=== PATIENT | male | born 1975 | race Caucasian/White ===

== ENCOUNTER 2016-05-04 09:59 | Inpatient (IN) | payer MEDICARE, OTHER ==
[~2016-05-04] VITALS: Ht 177.8 cm; Wt 115.2 kg
--- NOTE | 2016-05-04 10:21 | PD ---
HPI Chief Complaint: Silva act Time Seen by Provider: 10:09 Travel History International Travel<30 days: No Contact w/Intl Traveler<30days: No Traveled to known affect area: No History of Present Illness HPI 40-year-old male was seen at [facility] and Silva acted and sent to ED for medical clearance and psychiatric evaluation. Patient was diagnosed with schizophrenia and delusional. Patient's unable to provide any more information. Patient denies any headache. Patient denies any chest pain or shortness of breath. Patient denies abdominal pain. Patient denies any focal weakness or numbness of extremity. Patient denies any illicit drug abuse or alcohol abuse. PFSH Social History Tobacco Use: No Allergies-Medications (Allergen,Severity, Reaction): Coded Allergies: No Known Allergies (Unverified , 05/04/16) Reported Meds & Prescriptions Reported Meds & Active Scripts Active No Active Prescriptions or Reported Medications Review of Systems General / Constitutional: No: Fever Eyes: No: Visual changes HENT: No: Headaches Cardiovascular: No: Chest Pain or Discomfort Respiratory: No: Shortness of Breath Gastrointestinal: No: Abdominal Pain Genitourinary: No: Dysuria Musculoskeletal: No: Pain Skin: No Rash Neurologic: No: Weakness Psychiatric: No: Depression Endocrine: No: Polydipsia Hematologic/Lymphatic: No: Easy Bruising Physical Exam Narrative GENERAL: Well-nourished, well-developed patient. SKIN: Warm and dry. HEAD: Normocephalic. EYES: No scleral icterus. No injection or drainage. NECK: Supple, trachea midline. No JVD or lymphadenopathy. CARDIOVASCULAR: Regular rate and rhythm without murmurs, gallops, or rubs. RESPIRATORY: Breath sounds equal bilaterally. No accessory muscle use. GASTROINTESTINAL: Abdomen soft, non-tender, nondistended. MUSCULOSKELETAL: No cyanosis, or edema. BACK: Nontender without obvious deformity. No CVA tenderness. Neurologic exam: Patient's awake and alert. Patient moves all extremities well. No obvious focal neurological deficit. Data Data Last Documented VS Vital Signs Date Time Temp Pulse Resp B/P Pulse Ox O2 Delivery O2 Flow Rate FiO2 05/05/16 06:21 68 16 132/68 99 Room Air 05/04/16 14:39 97.8 Orders Complete Blood Count With Diff (05/04/16 10:18) Comprehensive Metabolic Panel (05/04/16 10:18) Psych Screen (05/04/16 10:18) Potassium Chloride (Kcl) (05/04/16 14:00) Diet Regular Basic (05/04/16 Dinner) Diet Regular Basic (05/05/16 Breakfast) Diet Regular Basic (05/05/16 Lunch) Admit Order (Ed Use Only) (05/05/16 09:52) Labs Laboratory Tests Test 05/04/16 10:30 Sodium Level 141 MEQ/L Potassium Level 3.3 MEQ/L Chloride Level 105 MEQ/L Carbon Dioxide Level 26.6 MEQ/L Anion Gap 9 MEQ/L Blood Urea Nitrogen 9 MG/DL Creatinine 0.79 MG/DL Estimat Glomerular Filtration 108 ML/MIN Rate Random Glucose 105 MG/DL Calcium Level 8.6 MG/DL Total Bilirubin 0.6 MG/DL Aspartate Amino Transf 21 U/L (AST/SGOT) Alanine Aminotransferase 34 U/L (ALT/SGPT) Alkaline Phosphatase 69 U/L Total Protein 7.6 GM/DL Albumin 3.8 GM/DL White Blood Count 5.0 TH/MM3 Red Blood Count 5.23 MIL/MM3 Hemoglobin 14.2 GM/DL Hematocrit 43.2 % Mean Corpuscular Volume 82.6 FL Mean Corpuscular Hemoglobin 27.1 PG Mean Corpuscular Hemoglobin 32.8 % Concent Red Cell Distribution Width 14.7 % Platelet Count 280 TH/MM3 Mean Platelet Volume 7.4 FL Neutrophils (%) (Auto) 58.3 % Lymphocytes (%) (Auto) 33.1 % Monocytes (%) (Auto) 6.0 % Eosinophils (%) (Auto) 1.9 % Basophils (%) (Auto) 0.7 % Neutrophils # (Auto) 2.9 TH/MM3 Lymphocytes # (Auto) 1.7 TH/MM3 Monocytes # (Auto) 0.3 TH/MM3 Eosinophils # (Auto) 0.1 TH/MM3 Basophils # (Auto) 0.0 TH/MM3 CBC Comment DIFF FINAL Differential Comment MDM Medical Decision Making Medical Screen Exam Complete: Yes Emergency Medical Condition: Yes Interpretation(s) 1343 PM. CBC within normal limit. CMP within normal limit. Potassium 3.3. Differential Diagnosis Differential diagnosis including schizophrenia, psychosis, psychiatric issues. Narrative Course 40-year-old male was Silva acted by [facility] and sent to ED for evaluation. 1340 3 PM. Patient is medically cleared for psychiatric evaluation and disposition. Scripts No Active Prescriptions or Reported Meds Yong Gallardo MD May 04, 2016 10:21
[2016-05-04 10:51] VITALS: BP 120/77; PULSE 64; RESP 17; TEMP 98.3; O2SAT 97
[2016-05-04 10:57] LABS: AUTOMATED NEUTROPHIL # 2.9 TH/MM3 (1.8-7.7); BASOPHIL % 0.7 % (0.0-2.0); EOSINOPHIL # 0.1 TH/MM3 (0-0.4); EOSINOPHIL % 1.9 % (0.0-4.0); HEMATOCRIT 43.2 % (39.0-51.0); HEMO FLAGS DIFF FINAL; LYMPH % 33.1 % (9.0-44.0); LYMPHOCYTE # 1.7 TH/MM3 (1.0-4.8); MEAN CELL VOLUME 82.6 FL (80.0-100.0); MEAN CORPUSCULAR HEMOGLOBIN 27.1 PG (27.0-34.0); MEAN CORPUSCULAR HGB CONC 32.8 % (32.0-36.0); NEUT % 58.3 % (16.0-70.0); PLATELET COUNT 280 TH/MM3 (150-450); RED BLOOD COUNT 5.23 MIL/MM3 (4.50-5.90); RED CELL DISTRIBUTION WIDTH 14.7 % (11.6-17.2)
[2016-05-04 11:17] LABS: ANION GAP 9 MEQ/L (5-15); AST (GOT) 21 U/L (15-37); BICARBONATE 26.6 MEQ/L (21.0-32.0); BLOOD UREA NITROGEN 9 MG/DL (7-18); CHLORIDE 105 MEQ/L (98-107); GLOMERULAR FILTRATION RATE 108 ML/MIN (>89); POTASSIUM 3.3 MEQ/L (3.5-5.1); SODIUM (NA) 141 MEQ/L (136-145)
[2016-05-04 11:20] LABS: ALKALINE PHOSPHATASE 69 U/L (45-117); ALT (GPT) 34 U/L (12-78); TOTAL BILIRUBIN ADULT 0.6 MG/DL (0.2-1.0)
[2016-05-04] MEDS ORDERED: POTASSIUM CHLORIDE 20 MEQ CONTROLLED RELEASE TAB PO ONE (14:00)
[2016-05-04 14:39] VITALS: BP 154/93; PULSE 75; RESP 17; TEMP 97.8; O2SAT 97
[2016-05-04 22:22] VITALS: BP 135/85; PULSE 70; RESP 18; O2SAT 97
[2016-05-05 02:16] VITALS: BP 127/72; PULSE 58; RESP 18; O2SAT 98
[2016-05-05 06:21] VITALS: BP 132/68; PULSE 68; RESP 16; O2SAT 99
[2016-05-05] MEDS ORDERED: MAGNESIUM HYDROXIDE SUSP 30 ML CUP PO PRN (11:30)
[2016-05-05] MEDS ORDERED: LORazepam 1 MG TAB PO PRN (11:30)
[2016-05-05] MEDS ORDERED: ALUMINUM/MAGNESIUM/SIMETH 30 ML CUP PO PRN (11:30)
[2016-05-05] MEDS ORDERED: LORazepam 2 MG/ML VIAL IM PRN (11:30)
[2016-05-05] MEDS ORDERED: ACETAMINOPHEN 325 MG TAB PO PRN (11:30)
[2016-05-05] MEDS ORDERED: traZODone HCL 50 MG TAB PO PRN (11:30)
[2016-05-05 13:00] VITALS: BP 113/60; PULSE 68; RESP 16; O2SAT 94
[2016-05-05 16:00] VITALS: BP 138/91; PULSE 67; RESP 16; TEMP 98.7; O2SAT 94
[2016-05-05] MEDS: REMOVE OLD NICOTINE PATCH T-DERMAL SCH (21:00)
[2016-05-05] MEDS: OLANZapine 5 MG TAB PO SCH (21:00)
[2016-05-06 06:07] VITALS: BP 125/85; PULSE 59; RESP 18; TEMP 97.8; O2SAT 99
[2016-05-06 08:15] LABS: ANION GAP 6 MEQ/L (5-15); BICARBONATE 28.3 MEQ/L (21.0-32.0); BLOOD UREA NITROGEN 11 MG/DL (7-18); CHLORIDE 107 MEQ/L (98-107); GLOMERULAR FILTRATION RATE 93 ML/MIN (>89); POTASSIUM 4.3 MEQ/L (3.5-5.1); SODIUM (NA) 141 MEQ/L (136-145)
[2016-05-06 08:18] LABS: HDL CHOLESTEROL 57.3 MG/DL (40.0-60.0); LDL CHOLESTEROL 81 MG/DL (0-99)
[2016-05-06] MEDS: OLANZapine 5 MG TAB PO SCH (09:00)
[2016-05-06] MEDS: NICOTINE 21 MG/24 HR PATCH T-DERMAL SCH (09:00)
[2016-05-06 09:25] LABS: HEMOGLOBIN A1b 1.4 %; HEMOGLOBIN Ao 86.3 %; HEMOGLOBIN LA1C 1.9 %; HEMOGLOBIN P3 3.5 %
[2016-05-06] MEDS ORDERED: HALOPERIDOL LACTATE 5 MG/ML AMP ONE (11:06)
[2016-05-06] MEDS ORDERED: diphenhydrAMINE HCL 50 MG/ML VIAL ONE (11:07)
[2016-05-06] MEDS ORDERED: HALOPERIDOL LACTATE 5 MG/ML AMP IM ONE (11:30)
[2016-05-06] MEDS ORDERED: LORazepam 2 MG/ML VIAL IM ONE (11:30)
[2016-05-06] MEDS ORDERED: diphenhydrAMINE HCL 50 MG/ML VIAL IM ONE (11:30)
[2016-05-06 11:45] LABS: AMPHETAMINE, URINE NEG (NEG); BARBITURATES, URINE NEG (NEG); COCAINE, URINE NEG (NEG)
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
[2016-05-06] MEDS ORDERED: BENZTROPINE MESYLATE 2 MG/2 ML VIAL IM PRN (15:30)
[2016-05-06] MEDS ORDERED: BENZTROPINE MESYLATE 1 MG TAB PO PRN (15:30)
[2016-05-06] MEDS ORDERED: HALOPERIDOL 5 MG TAB PO PRN (15:30)
[2016-05-06] MEDS ORDERED: HALOPERIDOL LACTATE 5 MG/ML AMP IM PRN (15:30)
[2016-05-06] MEDS ORDERED: diphenhydrAMINE HCL 50 MG CAP PO PRN (15:30)
[2016-05-06] MEDS ORDERED: LORazepam 2 MG/ML VIAL IM PRN (17:30)
[2016-05-06] MEDS ORDERED: LORazepam 1 MG TAB PO PRN (17:30)
[2016-05-06 18:17] VITALS: BP 116/57; PULSE 109; RESP 16; TEMP 98.1; O2SAT 97
[2016-05-06] MEDS: REMOVE OLD NICOTINE PATCH T-DERMAL SCH (20:46)
[2016-05-07 05:32] VITALS: BP 131/74; PULSE 65; RESP 16; TEMP 97.7; O2SAT 98
[2016-05-07] MEDS: NICOTINE 21 MG/24 HR PATCH T-DERMAL SCH (08:40)
[2016-05-07] MEDS: REMOVE OLD NICOTINE PATCH T-DERMAL SCH (08:40)
--- NOTE | 2016-05-07 11:41 | HHI.PYPN ---
Subjective Remarks Patient seen and examined with counselor. Chart reviewed. Case discussed with nursing staff. We still have no one to provide consent for medications. On my examination today, patient remains extremely psychotic. He is internally preoccupied. When I try to engage him in conversation, he is more or less conversing instead with an unseen interlocutor. When I am able to engage with him directly, his speech is fairly disjointed and nonsensical, saying things like "I can't seem to learn it" and "if you do it, everyone else will do it," but these phrases mean nothing in context. He does mention an uncle named Larry Ventura, but he does not know where he lives of how to contact him. Review of Systems ROS Limitations: Psychotic, Poor Historian Other No physical complaints today. Objective Alert: Yes [place]: Person Mood: Calm Affect: Flat Memory Intact: Comment (difficult to assess; psychosis interferes.) Hallucinations: Auditory (Frankly responding to internal stimuli) Delusions: Yes Delusion Type: Paranoid Suicidal: Ideation (No SI voiced) Homicidal: Ideation (No HI voiced) Insight/Judgement Poor Remarks Thought process quite disorganized. Speech rambling, somewhat pressured. Continues to cock his neck, but this is less prominent today. No other abnormal motor movements noted. Labs Labs reviewed. No new labs. Vitals/IOs Vital Signs Date Time Temp Pulse Resp B/P Pulse Ox O2 Delivery O2 Flow Rate FiO2 05/07/16 05:32 97.7 65 16 131/74 98 05/05/16 13:00 Room Air Assessment & Plan Problem List: (1) Psychosis ICD Code: F29 Assessment & Plan Medications on hold awaiting consent. Patient remains too psychotic to function safely in a lower level of care. We will continue to try to obtain some sort of collateral information regarding this patient's case. Continue to monitor on inpatient unit. Justification for Cont. Inpt. Impairment in self-care, impairment in reality construction, high risk for decompensation in a lower level of care. Discharge Planning Pending psychiatric stabilization. Request HC Surrog/Guard Advoc?: Yes Problem Qualifiers (1) Psychosis: Qualified Code: F28 - Other psychotic disorder not due to substance or known physiological condition Delonte Calhoun MD May 07, 2016 11:41
[2016-05-07 19:26] VITALS: BP 127/65; PULSE 69; RESP 16; TEMP 98
[2016-05-08 05:51] VITALS: BP 122/80; PULSE 78; RESP 18; TEMP 98; O2SAT 92
[2016-05-08] MEDS: NICOTINE 21 MG/24 HR PATCH T-DERMAL SCH (09:00)
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
[2016-05-08] MEDS: REMOVE OLD NICOTINE PATCH T-DERMAL SCH (21:00)
[2016-05-08 22:35] VITALS: BP 135/69; PULSE 69; RESP 16; TEMP 98; O2SAT 97
[2016-05-09 06:10] VITALS: BP 146/73; PULSE 69; RESP 18; TEMP 98.4; O2SAT 95
[2016-05-09] MEDS: NICOTINE 21 MG/24 HR PATCH T-DERMAL SCH (08:35)
--- NOTE | 2016-05-09 15:04 | HHI.PYPN ---
Subjective Remarks Patient was seen and case discussed with nursing. Patient remains elevated and hyperverbal. Flight of ideas. Poor insight into his mental health. He is behaving well on the unit. Denies auditory visual hallucinations. Objective Alert: Yes [place]: Person Mood: Calm Affect: Flat Memory Intact: Comment (remains difficult to assess) Hallucinations: Auditory (remains internally stimulated) Delusions: Yes Delusion Type: Paranoid Suicidal: Ideation (No SI voiced) Homicidal: Ideation (No HI voiced) Insight/Judgement Poor Vitals/IOs Vital Signs Date Time Temp Pulse Resp B/P Pulse Ox O2 Delivery O2 Flow Rate FiO2 05/09/16 06:10 98.4 69 18 146/73 95 05/05/16 13:00 Room Air Assessment & Plan Problem List: (1) Psychosis ICD Code: F29 Assessment & Plan Continue current treatment plan Justification for Cont. Inpt. Patient will decompensate in a less restrictive setting Request HC Surrog/Guard Advoc?: Yes Problem Qualifiers (1) Psychosis: Qualified Code: F28 - Other psychotic disorder not due to substance or known physiological condition Jamaal Gill DO May 09, 2016 15:04
[2016-05-09 19:42] VITALS: BP 106/60; PULSE 67; RESP 18; TEMP 98.2; O2SAT 98
[2016-05-09] MEDS: REMOVE OLD NICOTINE PATCH T-DERMAL SCH (21:00)
[2016-05-10 05:34] VITALS: BP 136/79; PULSE 60; RESP 16; TEMP 97.2; O2SAT 99
[2016-05-10] MEDS: NICOTINE 21 MG/24 HR PATCH T-DERMAL SCH (09:00)
[2016-05-10 16:58] VITALS: BP_SYST 140; BP_SYST 99; BP_DIAS 72; PULSE 77; RESP 18; TEMP 98.1; O2SAT 99
--- NOTE | 2016-05-10 17:12 | HHI.PYPN ---
Subjective Remarks Patient was seen and case discussed with nursing. Patient remains largely nonsensical and disorganized. Perseverative today on finding a job. Mood remains stable. Patient is bright and cheerful. He denies depressed mood. Denies suicidal or homicidal ideation intent or plan. Compliant with medications Objective Alert: Yes [place]: Person Mood: Calm Affect: Flat Memory Intact: Comment (remains difficult to assess) Hallucinations: Auditory (remains internally stimulated) Delusions: Yes Delusion Type: Paranoid Suicidal: Ideation (No SI voiced) Homicidal: Ideation (No HI voiced) Insight/Judgement Poor Vitals/IOs Vital Signs Date Time Temp Pulse Resp B/P Pulse Ox O2 Delivery O2 Flow Rate FiO2 05/10/16 16:58 98.1 77 18 99/ 99 Assessment & Plan Problem List: (1) Psychosis ICD Code: F29 Assessment & Plan Continue current treatment plan Justification for Cont. Inpt. Patient will decompensate in a less restrictive setting Request HC Surrog/Guard Advoc?: Yes Problem Qualifiers (1) Psychosis: Qualified Code: F28 - Other psychotic disorder not due to substance or known physiological condition Jamaal Gill DO May 10, 2016 17:12
[2016-05-10] MEDS: REMOVE OLD NICOTINE PATCH T-DERMAL SCH (20:49)
[2016-05-11 05:52] VITALS: BP 153/71; PULSE 74; RESP 18; TEMP 98.3; O2SAT 97
[2016-05-11] MEDS: NICOTINE 21 MG/24 HR PATCH T-DERMAL SCH (09:00)
--- NOTE | 2016-05-11 09:50 | HHI.PYPN ---
Subjective Remarks Patient seen and examined with nurse. Chart reviewed. Case discussed with nursing staff who reports patient remains disorganized. He apparently at one point told nursing staff that he had been on Zyprexa in the past. On my examination today, the patient remains disorganized. His affect is fairly silly. He is quite malodorous and disheveled. He says, "Crab suck. Went over there lady back down the [address]." Not clear what this means. He remains internally preoccupied and bizarre. He does admit to having been on Zyprexa, "in the past. If they knew all my names." Pacing around the unit, frankly muttering to himself. Review of Systems ROS Limitations: Psychotic, Poor Historian Other No physical complaints today. Objective Alert: Yes [place]: Person Mood: Calm Affect: Other (silly, bizarre) Memory Intact: Comment (Not formally assessed today) Hallucinations: Auditory (remains internally stimulated) Delusions: Yes Delusion Type: Paranoid Suicidal: Ideation (No SI) Homicidal: Ideation (No HI) Insight/Judgement Poor Remarks Thought process disorganized. Speech rambling and difficult to follow at times. No motoric abnormalities noted. Grooming and hygiene are poor and I have encouraged the patient to take a shower. Labs Labs reviewed. Extended tox screen negative. Vitals/IOs Vital Signs Date Time Temp Pulse Resp B/P Pulse Ox O2 Delivery O2 Flow Rate FiO2 05/11/16 05:52 98.3 74 18 153/71 97 Assessment & Plan Problem List: (1) Psychosis ICD Code: F29 Assessment & Plan Awaiting appointment of a guardian advocate for consent for medications. Patient remains extremely psychotic and disorganized. Requires monitoring on the unit for safety. Justification for Cont. Inpt. Impairment in reality construction. Impairment in self-care. Impairment in social function. High risk for decompensation in a less restrictive environment. Discharge Planning Pending psychiatric stabilization. We will likely have to await hopeful appointment of a guardian advocate on to begin medication management for this patient. Request HC Surrog/Guard Advoc?: Yes Problem Qualifiers (1) Psychosis: Qualified Code: F28 - Other psychotic disorder not due to substance or known physiological condition Delonte Calhoun MD May 11, 2016 09:50
[2016-05-11 10:05] LABS: BATH SALTS (MDPV) UR NEG (NEG); ECSTASY (MDMA) UR NEG (NEG); HEROIN (6-ACETYLMORPHINE) UR NEG (NEG); K2 SPICE UR NEG (NEG); OBMETHADONE UR NEG (NEG); OXYCODONE (PERCODAN) NEG (NEG); PHENCYCLIDINE URINE NEG (NEG)
[2016-05-11 15:29] VITALS: BP 129/62; PULSE 82; RESP 18; TEMP 98.3; O2SAT 97
[2016-05-11] MEDS: REMOVE OLD NICOTINE PATCH T-DERMAL SCH (21:00)
[2016-05-12 05:41] VITALS: BP 120/71; PULSE 61; RESP 17; TEMP 98; O2SAT 99
[2016-05-12] MEDS: NICOTINE 21 MG/24 HR PATCH T-DERMAL SCH (08:45)
--- NOTE | 2016-05-12 09:28 | HHI.PYPN ---
Subjective Remarks Patient seen and examined with counselor. Chart reviewed. Case discussed with nursing staff, counselor and recreation therapist in treatment team. Per nursing staff, the patient remains very psychotic. Amongst his ramblings is material regarding the [place] night[place] shooting, I am told. He is reportedly muttering the word "nigg*r" to no one in particular on the unit, per nursing staff. On my examination today, the patient is disheveled and malodorous. He is calm but somewhat discharge focused. His thought process is disorganized and his speech is difficult to follow. He tells us, "that roca-woman comes around the way." Unclear what this means. Remains quite internally stimulated. Still no consents for meds. Review of Systems ROS Limitations: Psychotic, Poor Historian Other No physical complaints today. Objective Alert: Yes [place]: Person Mood: Calm Affect: Other (remains fairly silly and bizarre.) Memory Intact: Comment (Not formally assessed today) Hallucinations: Auditory (Internally stimulated.) Delusions: Yes Delusion Type: Paranoid (bizarre) Suicidal: Ideation (No SI) Homicidal: Ideation (No HI) Insight/Judgement Poor Remarks TP disorganized. Steady gait and station. Labs Labs reviewed. No new labs. Vitals/IOs Vital Signs Date Time Temp Pulse Resp B/P Pulse Ox O2 Delivery O2 Flow Rate FiO2 05/12/16 05:41 98.0 61 17 120/71 99 Assessment & Plan Problem List: (1) Psychosis ICD Code: F29 Assessment & Plan Awaiting appointment of a guardian advocate to begin medication management and the psychotic patient. Continue to monitor on the inpatient psychiatric unit. Justification for Cont. Inpt. Impairment in reality construction. Impairment in self-care. Impairment in social function. High risk for decompensation in a less restrictive environment. Discharge Planning Pending outcome of [address], . Request HC Surrog/Guard Advoc?: Yes Problem Qualifiers (1) Psychosis: Qualified Code: F28 - Other psychotic disorder not due to substance or known physiological condition Delonte Calhoun MD May 12, 2016 09:28
[2016-05-12 18:12] VITALS: BP 136/86; PULSE 71; RESP 18; TEMP 98.1; O2SAT 98
[2016-05-12] MEDS ORDERED: HALOPERIDOL LACTATE 5 MG/ML AMP IM ONE (23:00)
[2016-05-12] MEDS ORDERED: LORazepam 2 MG/ML VIAL IM ONE (23:00)
[2016-05-12] MEDS ORDERED: diphenhydrAMINE HCL 50 MG/ML VIAL IM ONE (23:00)
[2016-05-13 06:40] VITALS: BP 107/57; PULSE 63; RESP 16; TEMP 97.6; O2SAT 98
--- NOTE | 2016-05-13 08:49 | HHI.PYPN ---
Subjective Remarks Patient seen and examined with nurse. Chart reviewed. Case discussed with nursing staff. Overnight the patient became agitated and required ETO Haldol, Ativan and Benadryl. Per nursing staff, patient was quite angry about this this morning. On my examination today the patient is somewhat irritable and remains quite paranoid and internally stimulated. Thought process remains quite disorganized. Makes bizarre statements like, "I need the city [place]. " No evident side effects from ETO. Review of Systems ROS Limitations: Psychotic, Poor Historian Other No physical complaints Objective Alert: Yes [place]: Person Mood: Angry Affect: Other (odd) Memory Intact: Comment (Not formally assessed today) Hallucinations: Auditory (remains internally preoccupied) Delusions: Yes Delusion Type: Paranoid (ongoing paranoia) Suicidal: Ideation (No SI) Homicidal: Ideation (No HI) Insight/Judgement Poor Remarks Thought process disorganized. No hand tremor, no dystonia, no dyskinesia, no other motoric abnormalities noted. Labs Labs reviewed. No new labs. Vitals/IOs Vital Signs Date Time Temp Pulse Resp B/P Pulse Ox O2 Delivery O2 Flow Rate FiO2 05/13/16 06:40 97.6 63 16 107/57 98 Assessment & Plan Problem List: (1) Psychosis ICD Code: F29 Assessment & Plan Patient on no scheduled psychotropics for lack of consent. [facility] is [facility], and hopefully a guardian advocate will be appointed. Continue to monitor on the inpatient psychiatric unit in the meantime as he remains quite psychotic. Justification for Cont. Inpt. Impairment in reality construction. Impairment in social function. High risk for decompensation in a less restrictive environment. Discharge Planning Pending outcome of [address] tomorrow. Request HC Surrog/Guard Advoc?: Yes Problem Qualifiers (1) Psychosis: Qualified Code: F28 - Other psychotic disorder not due to substance or known physiological condition Delonte Calhoun MD May 13, 2016 08:49
[2016-05-13 19:26] VITALS: BP 114/68; PULSE 75; RESP 18; TEMP 98.7
[2016-05-14 05:57] VITALS: BP 125/90; PULSE 67; RESP 18; TEMP 97.9
--- NOTE | 2016-05-14 12:43 | HHI.PYPN ---
Subjective Remarks Patient seen and case discussed with nursing staff. Per nursing staff, the patient believes that Pres. Ceballos is following him across the country. Chart reviewed. For me today, the patient remains extremely disorganized. He rambles about "Mr. Ayala" and "[employer]." Remains really difficult to make much sense of his speech. He remains internally preoccupied and is pacing around the unit, muttering to himself. Patient's case was presented to the [facility] and the patient was retained on the inpatient psychiatric unit and appointed a guardian with [facility] so that we might finally begin medication management for this psychotic patient. Review of Systems ROS Limitations: Psychotic, Poor Historian Other No reported physical complaints Objective Alert: Yes [place]: Person Mood: Happy Affect: Other (odd, silly) Memory Intact: Comment (Not formally assessed today) Hallucinations: Auditory (remains extremely internally preoccupied) Delusions: Yes Delusion Type: Paranoid (bizarre) Suicidal: Ideation (No SI) Homicidal: Ideation (No HI) Insight/Judgement Poor Remarks No abnormal motor movements noted Labs Labs reviewed. No new labs. Vitals/IOs Vital Signs Date Time Temp Pulse Resp B/P Pulse Ox O2 Delivery O2 Flow Rate FiO2 05/14/16 05:57 97.9 67 18 125/90 05/13/16 06:40 98 Assessment & Plan Problem List: (1) Psychosis Assessment & Plan: Suspect schizophrenia or perhaps schizoaffective disorder, bipolar type ICD Code: F29 Assessment & Plan Initiate Risperdal titration. I have ordered corresponding Haldol IM PRN titration, should patient refuse Risperdal. However, given that there does seem to be an affective component to patient's psychosis, I would prefer if he would accept the Risperdal because if he tolerates it well we could transition to [place]a or S[place]. Continue to monitor on the inpatient unit. Continue other medications and care as ordered. Justification for Cont. Inpt. Impairment in reality construction. Impairment in social function. Impairment in self-care. High risk for decompensation in a less restrictive environment. Discharge Planning Pending psychiatric stabilization. Request HC Surrog/Guard Advoc?: Yes Problem Qualifiers (1) Psychosis: Qualified Code: F28 - Other psychotic disorder not due to substance or known physiological condition Delonte Calhoun MD May 14, 2016 12:43
[2016-05-14] MEDS ORDERED: HALOPERIDOL LACTATE 5 MG/ML AMP IM PRN (12:45)
[2016-05-14 19:37] VITALS: BP 136/84; PULSE 65; RESP 18; TEMP 98.5; O2SAT 98
[2016-05-14] MEDS: risperiDONE 1 MG TAB PO SCH (20:14)
[2016-05-15 05:28] VITALS: BP 105/55; PULSE 62; RESP 18; TEMP 98; O2SAT 99
[2016-05-15] MEDS: risperiDONE 1 MG TAB PO SCH ×2 (09:10→20:46)
--- NOTE | 2016-05-15 11:29 | HHI.PYPN ---
Subjective Remarks Patient remains delusional and easily disorganized and even upset. However he is more cooperative this morning and is willing to shower himself. Review of Systems ROS Limitations: Clinical Condition Except as stated in HPI: all other systems reviewed are Neg Objective Alert: Yes [place]: Person Mood: Anxious Affect: Restricted, Other (odd, silly) Memory Intact: Comment (Not formally assessed today) Hallucinations: Auditory (remains extremely internally preoccupied) Delusions: Yes Delusion Type: Paranoid (bizarre) Suicidal: Ideation (No SI) Homicidal: Ideation (No HI) Insight/Judgement Remains significantly impaired. Vitals/IOs Vital Signs Date Time Temp Pulse Resp B/P Pulse Ox O2 Delivery O2 Flow Rate FiO2 05/15/16 05:28 98.0 62 18 105/55 99 Assessment & Plan Problem List: (1) Psychosis ICD Code: F29 Assessment & Plan Estimated LOS: days patient continues to be observed and evaluated for effectiveness of antipsychotic medication. Justification for Cont. Inpt. Remains unable to care for himself. Request HC Surrog/Guard Advoc?: Yes Problem Qualifiers (1) Psychosis: Qualified Code: F28 - Other psychotic disorder not due to substance or known physiological condition Akhil Toledo MD May 15, 2016 11:29
[2016-05-15 17:00] VITALS: BP 112/56; PULSE 67; RESP 18; TEMP 98.2; O2SAT 98
[2016-05-16 05:41] VITALS: BP 112/70; PULSE 68; RESP 18; TEMP 98.2; O2SAT 97
[2016-05-16] MEDS: risperiDONE 1 MG TAB PO SCH ×2 (09:01→20:26)
--- NOTE | 2016-05-16 13:03 | HHI.PYPN ---
Subjective Remarks Pt seen and discussed with staff. He has been compliant with medications and denies side effects. He remains bizarre and delusional. He continues to perseverate on President Tucker and the Ceballos family and President "Kimberli Grubre". He states that this type of place is "no good" because, "no shop, no compute, no plan, no job, etc" He laughs inappropriately and dances during interview. He has told staff that he is a vampire. He denies SI/HI. He does state that he has been in the psychiatric hospital before and "they never stop what is going to happen." Objective Alert: Yes [place]: Person Mood: Anxious Affect: Restricted, Other (odd, silly) Memory Intact: Comment (Not formally assessed today) Hallucinations: Auditory (remains extremely internally preoccupied) Delusions: Yes Delusion Type: Paranoid (bizarre) Suicidal: Ideation (No SI) Homicidal: Ideation (No HI) Insight/Judgement poor Vitals/IOs Vital Signs Date Time Temp Pulse Resp B/P Pulse Ox O2 Delivery O2 Flow Rate FiO2 05/16/16 05:41 98.2 68 18 112/70 97 Assessment & Plan Problem List: (1) Psychosis ICD Code: F29 Assessment & Plan Continue risperdal titration to target psychosis. Estimated LOS: days Justification for Cont. Inpt. Psychosis and inability to care for self. Request HC Surrog/Guard Advoc?: Yes Wanda Gaspar MD May 16, 2016 13:03
[2016-05-16 15:15] VITALS: BP 130/78; PULSE 71; RESP 18; TEMP 98.2
[2016-05-16 19:51] VITALS: BP 130/78; PULSE 71; RESP 18; TEMP 98.2
[2016-05-17 05:54] VITALS: BP 103/54; PULSE 55; RESP 18; TEMP 97.8; O2SAT 98
[2016-05-17] MEDS: risperiDONE 1 MG TAB PO SCH ×2 (08:27→20:48)
[2016-05-17 16:17] VITALS: BP 113/67; PULSE 62; RESP 18; TEMP 98.2; O2SAT 96
--- NOTE | 2016-05-17 22:53 | HHI.PYPN ---
Subjective Remarks Pt seen and discussed. He is tolerating risperidone without side effects. He remains disorganized and delusional. No aggression. NO SI/HI. Objective Alert: Yes [place]: Person Mood: Anxious Affect: Restricted, Other (odd, silly) Memory Intact: Comment (Not formally assessed today) Hallucinations: Auditory (remains extremely internally preoccupied) Delusions: Yes Delusion Type: Paranoid (bizarre) Suicidal: Ideation (No SI) Homicidal: Ideation (No HI) Insight/Judgement poor Vitals/IOs Vital Signs Date Time Temp Pulse Resp B/P Pulse Ox O2 Delivery O2 Flow Rate FiO2 05/17/16 16:17 98.2 62 18 113/67 96 Assessment & Plan Problem List: (1) Psychosis ICD Code: F29 Assessment & Plan Continue current tx plan. Estimated LOS: days Justification for Cont. Inpt. floridly psychotic Request HC Surrog/Guard Advoc?: Yes Wanda Gaspar MD May 17, 2016 22:53
[2016-05-18 06:37] VITALS: BP 126/72; PULSE 63; RESP 18; TEMP 98.2; O2SAT 97
[2016-05-18] MEDS: risperiDONE 1 MG TAB PO SCH ×2 (08:23→20:28)
--- NOTE | 2016-05-18 13:18 | HHI.PYPN ---
Subjective Remarks Pt remains paranoid and easily agitated. He complains staff mispronounces his name on purpose. Review of Systems ROS Limitations: Clinical Condition Except as stated in HPI: all other systems reviewed are Neg Objective Alert: Yes [place]: Person Mood: Anxious Affect: Restricted, Other (odd, silly) Memory Intact: Comment (Not formally assessed today) Hallucinations: Auditory (remains extremely internally preoccupied) Delusions: Yes Delusion Type: Paranoid (bizarre) Suicidal: Ideation (No SI) Homicidal: Ideation (No HI) Insight/Judgement Patient's insight and judgment remain significantly impaired. Vitals/IOs Vital Signs Date Time Temp Pulse Resp B/P Pulse Ox O2 Delivery O2 Flow Rate FiO2 05/18/16 06:37 98.2 63 18 126/72 97 Assessment & Plan Problem List: (1) Psychosis ICD Code: F29 Assessment & Plan Estimated LOS: days patient remains paranoid and easily agitated. He is unable to contract for safety. Justification for Cont. Inpt. Patient is at risk for harming others. Request HC Surrog/Guard Advoc?: Yes Akhil Toledo MD May 18, 2016 13:18
[2016-05-18 15:15] VITALS: BP 114/73; PULSE 71; RESP 18; TEMP 98.4; O2SAT 97
[2016-05-19 06:22] VITALS: BP 124/76; PULSE 74; RESP 18; TEMP 98.2; O2SAT 97
[2016-05-19] MEDS: risperiDONE 1 MG TAB PO SCH (08:55)
--- NOTE | 2016-05-19 13:07 | HHI.PYPN ---
Subjective Remarks Patient was seen and discussed with the public health staff nurse. Patient reported that he has been feeling sick on Res[place] he has been throwing up. Patient reported that in the past she did fairly well on Zyprexa and would like to be on the Zyprexa. Patient denied any suicidal ideation intentions or plan. Patient denied any auditory or visual hallucinations at this time. No behavior or management problem reported. He is very compliant and cooperative with the treatment. We' ll try to switch him to Zyprexa and see how he does. Continue with the same treatment Review of Systems Except as stated in HPI: all other systems reviewed are Neg Psychiatric: COMPLAINS OF: Mood changes, Depression, Hallucinations, Delusions Objective Alert: Yes [place]: Person, Place Mood: Anxious, Other (patient claimed that he has been throwing up and feel sick with the Risperdal) Affect: Restricted, Other (odd, silly) Memory Intact: Comment (Not formally assessed today) Hallucinations: Auditory (remains extremely internally preoccupied) Delusions: Yes Delusion Type: Paranoid (bizarre) Suicidal: Ideation (No SI) Homicidal: Ideation (No HI) Insight/Judgement Limited to fair Vitals/IOs Vital Signs Date Time Temp Pulse Resp B/P Pulse Ox O2 Delivery O2 Flow Rate FiO2 05/19/16 06:22 98.2 74 18 124/76 97 Assessment & Plan Problem List: (1) Psychosis ICD Code: F29 Assessment & Plan Estimated LOS: days Justification for Cont. Inpt. Risk of decompensation and monitoring of the medication Request HC Surrog/Guard Advoc?: Yes Antonino Espana MD May 19, 2016 13:07
[2016-05-19] MEDS: OLANZapine 5 MG TAB PO SCH ×2 (14:00→20:23)
[2016-05-19 15:30] VITALS: BP 110/69; PULSE 64; RESP 18; TEMP 98.4; O2SAT 98
[2016-05-20 06:39] VITALS: BP 124/62; PULSE 77; RESP 18; TEMP 99.6; O2SAT 99
[2016-05-20] MEDS: OLANZapine 5 MG TAB PO SCH ×2 (08:52→20:06)
--- NOTE | 2016-05-20 13:09 | HHI.PYPN ---
Subjective Remarks Patient remains psychotic and disorganized but is more cooperative and calm today. Review of Systems ROS Limitations: Clinical Condition Except as stated in HPI: all other systems reviewed are Neg Objective Alert: Yes [place]: Person, Place Mood: Anxious, Other (patient claimed that he has been throwing up and feel sick with the Risperdal) Affect: Restricted, Other (odd, silly) Memory Intact: Comment (Not formally assessed today) Hallucinations: Auditory (remains extremely internally preoccupied) Delusions: Yes Delusion Type: Paranoid (bizarre) Suicidal: Ideation (No SI) Homicidal: Ideation (No HI) Insight/Judgement Insight and judgment remain markedly impaired. Vitals/IOs Vital Signs Date Time Temp Pulse Resp B/P Pulse Ox O2 Delivery O2 Flow Rate FiO2 05/20/16 06:39 99.6 77 18 124/62 99 Assessment & Plan Problem List: (1) Psychosis ICD Code: F29 Assessment & Plan Estimated LOS: days patient appears to need several more days of stabilization on his medication. Justification for Cont. Inpt. Patient remains unable to care for himself. Request HC Surrog/Guard Advoc?: Yes Akhil Toledo MD May 20, 2016 13:09
[2016-05-20 19:25] VITALS: BP 116/70; PULSE 79; RESP 18; TEMP 98.6; O2SAT 99
[2016-05-21 05:25] VITALS: BP 130/69; PULSE 66; RESP 18; TEMP 97.8; O2SAT 97
[2016-05-21] MEDS: OLANZapine 5 MG TAB PO SCH (08:59)
--- NOTE | 2016-05-21 11:29 | HHI.PYPN ---
Subjective Remarks Patient seen and examined with nurse. Chart reviewed. Case discussed with nursing staff who reports patient is clearing somewhat since antipsychotic medications were initiated. On my examination today, the patient presents as fairly exuberant with an odd, slightly silly and bubbly affect. He says that he is feeling "so much better" since his antipsychotic medications were resumed , and in particular is happy to be back on Zyprexa which he tolerates better than Risperdal, he now says. He apologizes for "the bad things I said," perhaps an allusion to the statements that he made at [facility], although it is not clear. He is perseverative on people mispronouncing his name. He is fairly future oriented and says that he plans to get housing and a payee. Denies side effects from Zyprexa and is agreeable to a titration of this medication. Review of Systems ROS Limitations: Psychotic, Poor Historian Other No physical complaints today Objective Alert: Yes [place]: Person, Place Mood: Other (somewhat elevated) Affect: Other (somewhat silly and expansive) Memory Intact: Comment (Not formally assessed today) Hallucinations: Other (remains somewhat internally preoccupied) Delusions: Yes Delusion Type: Paranoid (seems to be lessening) Suicidal: Ideation (denies SI) Homicidal: Ideation (denies HI) Insight/Judgement Poor but perhaps improving Remarks No abnormal motor movements noted. Thought process definitely more linear than previous encounter. Speech little bit pressured but otherwise within normal limits for tone and volume. Grooming and hygiene seem improved today. Labs Labs reviewed. No new labs. Vitals/IOs Vital Signs Date Time Temp Pulse Resp B/P Pulse Ox O2 Delivery O2 Flow Rate FiO2 05/21/16 05:25 97.8 66 18 130/69 97 Assessment & Plan Problem List: (1) Psychosis ICD Code: F29 Assessment & Plan Patient evidently seems to be experiencing some improvement in psychotic symptoms with the benefit of Zyprexa. I will titrate the Zyprexa to target his residual symptoms of psychosis. There also seems to be an affective component, and I would not be surprised if the patient has an underlying schizoaffective disorder. I will taper his Ativan PRN to 1 mg per dose as he has not required any PRNs recently and I do not want to overly sedate him should he require this medication. Continue other medications and care as ordered. Justification for Cont. Inpt. Resolving impairments in reality construction and social function. High risk for decompensation pending psychiatric stabilization. Discharge Planning Pending psychiatric stabilization. Request HC Surrog/Guard Advoc?: Yes Problem Qualifiers (1) Psychosis: Qualified Code: F28 - Other psychotic disorder not due to substance or known physiological condition Delonte Calhoun MD May 21, 2016 11:29
[2016-05-21] MEDS ORDERED: LORazepam 2 MG/ML VIAL IM PRN (18:00)
[2016-05-21] MEDS ORDERED: LORazepam 1 MG TAB PO PRN (18:00)
[2016-05-21 18:18] VITALS: BP 123/67; PULSE 57; RESP 17; TEMP 98.1; O2SAT 98
[2016-05-21] MEDS ORDERED: OLANZapine 10 MG TAB PO SCH (21:00)
[2016-05-22 05:46] VITALS: BP 125/71; PULSE 61; RESP 18; TEMP 98.1; O2SAT 99
[2016-05-22] MEDS ORDERED: OLANZapine 5 MG TAB PO SCH (09:00)
--- NOTE | 2016-05-22 11:23 | HHI.PYPN ---
Subjective Remarks Patient seen and examined with counselor. Chart reviewed. Case discussed with counselor, nursing staff and occupational therapist in treatment team. Per nursing staff, patient has been no behavioral problem. Per occupational therapist, patient is somewhat more appropriate in groups. On my examination today, the patient remains somewhat effusive and expansive. He says he hopes to get a job so he can get a new car and a nice place to live. He perseverates on people mispronouncing his name. His thought processes remain somewhat scattered and his associations remain loose. Denies side effects from medications. Review of Systems ROS Limitations: Poor Historian Other No physical complaints today. Objective Alert: Yes [place]: Person, Place Mood: Other (remains a little elevated) Affect: Other (remains somewhat expansive) Memory Intact: Comment (Not formally assessed today) Hallucinations: Other (less int stim) Delusions: No Delusion Type: Other (No becca delusions today) Suicidal: Ideation (No SI) Homicidal: Ideation (No HI) Insight/Judgement Poor Remarks No abnormal motor movements noted. Speech more or less wnl with respect to rate. Grooming and hygiene are fair at best. Labs Labs reviewed. No new labs. Vitals/IOs Vital Signs Date Time Temp Pulse Resp B/P Pulse Ox O2 Delivery O2 Flow Rate FiO2 05/22/16 05:46 98.1 61 18 125/71 99 Assessment & Plan Problem List: (1) Psychosis ICD Code: F29 Assessment & Plan Patient appears to be stabilizing well with Zyprexa. I will titrate Zyprexa to 10mg BID for management of residual psychotic/mood symptoms. Continue current medications and care as ordered. Justification for Cont. Inpt. Risk for decompensation in less restrictive environment pending psychiatric stabilization. Discharge Planning I do think the patient would benefit from a structured living environment, if such could be arranged. I have suggested this to the patient, but he declines our assistance in locating him some sort of stable housing. Request HC Surrog/Guard Advoc?: Yes Problem Qualifiers (1) Psychosis: Qualified Code: F28 - Other psychotic disorder not due to substance or known physiological condition Delonte Calhoun MD May 22, 2016 11:23
[2016-05-22 17:56] VITALS: BP 104/56; PULSE 59; RESP 18; TEMP 98.5; O2SAT 98
[2016-05-22] MEDS: OLANZapine 10 MG TAB PO SCH (21:00)
[2016-05-23 05:53] VITALS: BP 131/79; PULSE 67; RESP 18; TEMP 97.3; O2SAT 97
[2016-05-23] MEDS: OLANZapine 10 MG TAB PO SCH ×2 (08:30→20:59)
--- NOTE | 2016-05-23 15:37 | HHI.PYPN ---
Subjective Remarks Patient was seen and case discussed with nursing. Patient appears less delusional and disorganized. However, he still grandiose perseverant on various jobs and possessions that he will obtain. Compliant with his medications. Mildly irritable. Disorganized thought process. Denies suicidal ideations intent or plan Objective Alert: Yes [place]: Person, Place Mood: Other (mildly elevated) Affect: Other (remains somewhat expansive) Memory Intact: Comment (Not formally assessed today) Hallucinations: Other (less int stim) Delusions: No Delusion Type: Grandiose (mildly grandiose) Suicidal: Ideation (No SI) Homicidal: Ideation (No HI) Insight/Judgement Poor Vitals/IOs Vital Signs Date Time Temp Pulse Resp B/P Pulse Ox O2 Delivery O2 Flow Rate FiO2 05/23/16 05:53 97.3 67 18 131/79 97 Assessment & Plan Problem List: (1) Psychosis ICD Code: F29 Assessment & Plan Patient is improving. Continue medications at current dosing Justification for Cont. Inpt. Patient will decompensate in a less restrictive setting Request HC Surrog/Guard Advoc?: Yes Problem Qualifiers (1) Psychosis: Qualified Code: F28 - Other psychotic disorder not due to substance or known physiological condition Jamaal Gill DO May 23, 2016 15:36
[2016-05-23 22:24] VITALS: BP 135/77; PULSE 63; RESP 18; TEMP 98.3; O2SAT 95
[2016-05-24 05:31] VITALS: BP 124/58; PULSE 56; RESP 18; TEMP 98; O2SAT 97
[2016-05-24] MEDS: OLANZapine 10 MG TAB PO SCH ×2 (09:00→21:00)
--- NOTE | 2016-05-24 15:44 | HHI.PYPN ---
Subjective Remarks Patient was seen and case discussed with nursing. Patient is pleasant and cooperative with exam. He appears more relevant and thought process is more organized. He remains mildly grandiose and is perseverant on getting a job, buying a car, buying a washing machine. Mood is elated. Compliant with his medications. Behaving well on the unit. Continues to deny psychotic symptoms or suicidal ideation Objective Alert: Yes [place]: Person, Place Mood: Other ("good") Affect: Other (elevated) Memory Intact: Comment (Not formally assessed today) Hallucinations: Other (less int stim) Delusions: No Delusion Type: Grandiose (mildly grandiose) Suicidal: Ideation (No SI) Homicidal: Ideation (No HI) Insight/Judgement Poor Vitals/IOs Vital Signs Date Time Temp Pulse Resp B/P Pulse Ox O2 Delivery O2 Flow Rate FiO2 05/24/16 05:31 98.0 56 18 124/58 97 Assessment & Plan Problem List: (1) Psychosis ICD Code: F29 Assessment & Plan Continue current treatment plan Justification for Cont. Inpt. 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
[2016-05-24 19:03] VITALS: BP 101/66; PULSE 57; RESP 17; TEMP 98.2; O2SAT 100
[2016-05-25 06:31] VITALS: BP 122/72; PULSE 63; RESP 18; TEMP 98.2; O2SAT 96
[2016-05-25] MEDS: OLANZapine 10 MG TAB PO SCH ×2 (09:43→20:25)
--- NOTE | 2016-05-25 10:00 | HHI.PYPN ---
Subjective Remarks Patient seen and examined with counselor and nurse. Chart reviewed. Case discussed with nursing staff who reports patient is pleasant and cooperative if somewhat grandiose. For me today, the patient seems improved versus before the weekend. He says that his plan following discharge is to "remain on meds, listen to my child welfare social worker, and get a pharmacy sales representative payee." He says as before that he would like to start working after discharge, although his plans seem more reasonable today in this regard. He is tolerating the Zyprexa well without side effects and says this agent has worked well for him in the past. Review of Systems Other No physical complaints today. Objective Alert: Yes [place]: Person, Place Mood: Happy Affect: Other (Slightly silly/elevated) Memory Intact: Comment (Seems fair) Hallucinations: Other (No AVH) Delusions: No Delusion Type: Other (residual grandiosity perhaps not meeting criteria for delusion.) Suicidal: Ideation (No SI) Homicidal: Ideation (No HI) Insight/Judgement Poor but perhaps improving. Remarks No motor abnormalities noted. Speech wnl rate. TP fairly linear. Grooming/ hygiene fair. Labs Labs reviewed. No new labs. Vitals/IOs Vital Signs Date Time Temp Pulse Resp B/P Pulse Ox O2 Delivery O2 Flow Rate FiO2 05/25/16 06:31 98.2 63 18 122/72 96 Assessment & Plan Problem List: (1) Psychosis ICD Code: F29 Assessment & Plan Continue Zyprexa 10mg BID. I suspect patient is at or near his baseline. Continue other medications and care as ordered. Justification for Cont. Inpt. Discharge planning. Discharge Planning We have again offered [facility] or other placement and patient has declined. He says he will rent a room with his disability income. I have asked the counselor to see if [facility] child welfare social worker will liaison with patient on the unit prior to discharge. Anticipate discharge tomorrow. Request HC Surrog/Guard Advoc?: Yes Problem Qualifiers (1) Psychosis: Qualified Code: F28 - Other psychotic disorder not due to substance or known physiological condition Delonte Calhoun MD May 25, 2016 09:59
[2016-05-25 18:06] VITALS: BP 111/62; PULSE 60; RESP 18; TEMP 98.3; O2SAT 96
[2016-05-26 05:32] VITALS: BP 122/69; PULSE 53; RESP 18; TEMP 97.9; O2SAT 96
[2016-05-26] MEDS: OLANZapine 10 MG TAB PO SCH (08:24)
[2016-05-26] MEDS ORDERED: OLAN10TA PO (11:46)
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
== END 2016-05-26 13:45 | disposition home or self-care (01) | DRG 885 ==
LOC: NEPC 09:59 → NEDA 05-05 09:53 → H270 05-05 15:49
PROVIDERS: ADMIT Psychiatry & Neurology Psychiatry; ATTEND Psychiatry & Neurology Psychiatry
DX: F29 Unspecified psychosis not due to a substance or known physiological condition (principal); Z59.0 Homelessness
CPT/HCPCS: 80048; 80053; 80061; 80307; 83036; 85025; 99284; G0481; J1200; J1630; J2060

== ENCOUNTER 2016-06-03 13:38 | Emergency (ER) | payer MEDICARE, OTHER ==
[~2016-06-03] VITALS: Ht 182.9 cm; Wt 100.0 kg
[~2016-06-03 13:38] MED LIST: OLAN10TA PO
[2016-06-03 13:39] VITALS: BP 148/79; PULSE 65; RESP 16; TEMP 98.2; O2SAT 98
--- NOTE | 2016-06-03 14:05 | PD ---
HPI Chief Complaint: Injury Time Seen by Provider: 13:57 Travel History International Travel<30 days: No Contact w/Intl Traveler<30days: No Traveled to known affect area: No History of Present Illness HPI 40-year-old male presents to the emergency Department with complaint of fungus to his toenails times one year. He is concerned because his toenails are falling off due to the fungus and he is afraid that he is not going to be able to walk. He denies paresthesias, loss of sensation, decreased range of motion, decreased strength to bilateral lower extremities. Denies fever, chills, nausea , vomiting. Has not taken any medications or tried any treatments to alleviate his symptoms. He has no other medical complaints today. No other modifying factors or associated signs and symptoms. History Past Medical Histgory Hx Cancer: No Social History Alcohol Use: No Tobacco Use: No Allergies-Medications (Allergen,Severity, Reaction): Coded Allergies: No Known Allergies (Unverified , 05/04/16) Reported Meds & Prescriptions Reported Meds & Active Scripts Active Olanzapine 10 Mg Tab 10 Mg PO BID 15 Days Review of Systems Except as stated in HPI: all other systems reviewed are Neg Physical Exam Narrative GENERAL: Well-nourished, well-developed male patient, in no acute distress; afebrile, nontoxic-appearing SKIN: Warm and dry. All toes to bilateral feet are intact; some appear with fungus; all toes are pink and warm and without erythema, edema; no signs of infection noted to any toe. No lesions or wounds noted between all toes or to bilateral feet. HEAD: Atraumatic. Normocephalic. EYES: Pupils equal and round. No scleral icterus. No injection or drainage. ENT: Mucosa pink and moist. Airway patent. NECK: Trachea midline. CARDIOVASCULAR: Regular rate. RESPIRATORY: No accessory muscle use. GASTROINTESTINAL: Round. MUSCULOSKELETAL: Bilateral lower extremity is or supple and non-tense with 2+ pedal pulses and sensory intact and without erythema or edema. No obvious deformities. No clubbing. No cyanosis. No edema. NEUROLOGICAL: Awake and alert. Oriented 3. No obvious cranial nerve deficits. Motor grossly within normal limits. Normal speech. PSYCHIATRIC: Appropriate mood and affect; insight and judgment normal. Data Data Last Documented VS Vital Signs Date Time Temp Pulse Resp B/P Pulse Ox O2 Delivery O2 Flow Rate FiO2 06/03/16 13:39 98.2 65 16 148/79 98 Room Air MDM Medical Screen Exam Complete: Yes Emergency Medical Condition: No Differential Diagnosis onychomycosis, Medical clearance, malingering, Narrative Course 40-year-old male with nail fungus to bilateral feet. There are no signs of infection and all toenails are intact. He has had this problem for over a year. I instructed the patient to follow up with podiatry. I instructed the patient he could try [id number] topical antifungal nail product as directed and as needed for nail fungus. Vital signs are stable and the patient is stable for outpatient follow-up and treatment. The patient has no urgent or emergent medical complaints. There is no emergent or urgent medical need at this time. I instructed the patient to follow up with their primary care provider. A medical screening exam was performed: At the time of evaluation the presenting medical condition was determined not to be of an emergent nature. The patient was given the option of receiving additional care, but declined. Patient was given options for additional community resources from which to obtain care. The Patient Has Been advised to seek medical attention for their presenting complaint. The patient has been advised to return to the ER at any time if an emergent condition develops. Primary Impression: Encounter for medical screening examination Condition: Stable Lexis Mcdonnell Jun 03, 2016 14:05
== END 2016-06-03 14:24 | disposition left against medical advice (07) ==
LOC: NEPB 13:38
DX: B49 Unspecified mycosis (principal)
CPT/HCPCS: 99281